=== PATIENT | male | born 1970 | race Caucasian/White ===

== ENCOUNTER → 2019-08-04 | Outpatient (CLI) | payer BC ==
--- NOTE | 2019-08-04 14:27 | SFUN ---
SLEEP CENTER FOLLOW UP NOTE DATE OF SERVICE: 08/04/2019 A 48-year-old gentleman who has been followed in the Sleep Center for treatment of obstructive sleep apnea-hypopnea syndrome. The patient successfully continues to use CPAP equipment without significant problems related to mask fitting, pressure and humidification. [place] Sleepiness Scale today is 5 which is normal. I checked patient's CPAP unit, range of the pressure 5-20, average pressure is 15.7 cm of water. For the last 6 months, patient used it to 115/118 nights and 146/180 nights more than 4 hours with average usage 5.8 hours. Leak is 38 L/minute which is borderline. Apnea-hypopnea index is 4.9, which is normal range. MEDICATIONS: Lisinopril. PHYSICAL EXAM: Patient in no distress. BP 146/64, HR 86, RR 16, height 5 feet and 1-1/2 inches, weight 316 pounds, body mass index 43.4, which is almost 6 pounds more than a couple years ago. Oxygen saturation at room air 97%. OROPHARYNX: Low position of soft palate, Mallampati 4. ABDOMEN: Obese. Neck Supple, no JVD. Thyroid is not palpable. LUNGS Clear to percussion and to auscultation. Good air exchange. No wheezing or rhonchi. HEART S1, S2 regular. No murmurs, gallops, or rubs. EXTREMITIES No clubbing or cyanosis. ELECTRIC MELT OPERATOR Awake, alert, and oriented X3. Cranial nerves 2 to 7 intact. There is no fasciculation or atrophy. noted. No focal deficits observed. IMPRESSION: 1. Severe obstructive sleep apnea-hypopnea syndrome; apnea-hypopnea index 49.7 with oxygen desaturation to 74% on control with CPAP. The patient demonstrated great compliance with treatment, benefitting from treatment. 2. Obesity. 3. Hypertension. PLAN: 1. Prescription for all necessary CPAP supplies including the area of the neck including mask and filters. 2. Patient will continue to use CPAP equipment every night for the whole night. 3. Losing weight. 4. Sleep hygiene with regular time in bed for at least 8 hours. Thank you very much for allowing me to participate in the management of your patient. Sincerely, Crow Dickey MD, PhD, FAASM Diplomat of [employer] Purchasing Agent of [facility] [place] MMODL / MARION: [id number] /
== END ==
LOC: SLEEP 13:26
PROVIDERS: ATTEND Internal Medicine
DX: G47.33 Obstructive sleep apnea (adult) (pediatric) (principal); R09.02 Hypoxemia; E66.9 Obesity, unspecified; I10 Essential (primary) hypertension; Z99.89 Dependence on other enabling machines and devices; Z68.41 Body mass index [BMI] 40.0-44.9, adult; Z79.899 Other long term (current) drug therapy

== ENCOUNTER → 2020-08-09 | Outpatient (CLI) | payer BC ==
--- NOTE | 2020-08-09 18:37 | SFUN ---
SLEEP CENTER FOLLOW UP NOTE DATE OF SERVICE: This patient is a 49-year-old gentleman who has been followed in Sleep Center for treatment of obstructive sleep apnea-hypopnea syndrome. The patient successfully continues to use his CPAP equipment every night. No snoring with the machine. [place] Sleepiness Scale today is 5, which is normal. I checked his CPAP unit. Range of the pressure is 5 to 20, average pressure 13.7 cm of water, usage 28/30 nights for more than 4 hours with average usage 6.1 hours per night, which is good compliance. Leak 40 L/minute, which is high. Apnea-hypopnea index 3.2, which is normal. MEDICATIONS: Lisinopril. PHYSICAL EXAMINATION: GENERAL: A pleasant patient in no distress. VITAL SIGNS: BP 124/79, HR 72 RR 16, height 6 feet 0 inches, weight 302 pounds, which is 14 pounds less than during last visit. Oxygen saturation 97% HEENT: PERRLA, EOMI. Evaluation of oropharynx showed tongue protrudes midline. Low position of soft palate. Mallampati IV. NECK: Supple. No JVD. Thyroid is not palpable. LUNGS: Clear to percussion and to auscultation. Good air exchange. No wheezing or rhonchi. HEART: S1, S2 regular. No murmurs, gallops or rubs. ABDOMEN: Soft and nontender. Bowel sounds are present. No organomegaly. EXTREMITIES: No clubbing or cyanosis. MUSIC DEPARTMENT CHAIR: Awake, alert, and oriented X3. Cranial nerves 2 to 7 intact. There is no fasciculation or atrophy. noted. No focal deficits observed. IMPRESSION: 1. Severe obstructive sleep apnea-hypopnea syndrome; apnea-hypopnea index 49.7 with oxygen saturation to 74%, controlled with CPAP. Patient demonstrated great compliance with treatment, benefitting from treatment. 2. Obesity. BMI 40.9. 3. Hypertension. PLAN: 1. Patient will continue to use PAP equipment every night for the whole night. 2. Sleep hygiene with regular time in bed for at least 7-1/2 to 8 hours. 3. Precautions related to driving. No driving if feeling sleepiness. 4. I will maintain all necessary prescription for PAP supplies including mask, tube, filters. 5. Watching weight. 6. No driving if feeling sleepiness. 7. Follow-up visit in 6 months or earlier if patient has any problems. Thank you very much for allowing me to participate in the management of your patient. Sincerely, Crow Dickey MD, PhD, FAASM Diplomat of [employer] Ror Engineer of [facility] [place] MMLEATHA / MARION: [id number] /
== END | disposition home or self-care (01) ==
LOC: SLEEP 13:57
PROVIDERS: ATTEND Internal Medicine
DX: G47.33 Obstructive sleep apnea (adult) (pediatric) (principal); E66.9 Obesity, unspecified; I10 Essential (primary) hypertension; Z68.41 Body mass index [BMI] 40.0-44.9, adult; Z99.89 Dependence on other enabling machines and devices

== ENCOUNTER → 2021-02-07 | Outpatient (CLI) | payer BC ==
--- NOTE | 2021-02-07 17:14 | SFUN ---
SLEEP CENTER FOLLOW UP NOTE DATE OF SERVICE: 02/07/2021 This patient a 50-year-old gentleman who has been followed in Sleep Center for treatment of obstructive sleep apnea-hypopnea syndrome. Patient continues to use his CPAP equipment every night. He does not snore. [place] Sleepiness Scale is 4. The patient feels comfortable with his CPAP equipment regarding mask fitting, pressure and humidification. He is using a nasal pillow mask AirFit P10, medium size. The patient had COVID-19 in September 2020, without significant complications. I checked his CPAP unit. Range of the pressure is 5 to 20. Machine is on automatic regimen. Average pressure 14.3, usage 29/30 nights, and 25/30 nights for more than 4 hours. Average usage 5.6 hours per night. Leak is 46 L/minute, which is high. At the same time, apnea-hypopnea index is only 2.6, which is totally normal. MEDICATIONS: Lisinopril 10 mg once a day. PHYSICAL EXAMINATION: GENERAL: A pleasant patient in no distress. VITAL SIGNS: BP 133/77, HR 72, RR 16, height 6 feet 0 inches, weight 316.0, body mass index 42.8, which is the same as one year ago. Temperature 97.4, oxygen saturation at room air 98%. HEENT: PERRLA, EOMI. Evaluation of oropharynx showed tongue protrudes midline. Extremely low position of soft palate. Mallampati IV. NECK: Supple. No JVD. Thyroid is not palpable. LUNGS: Clear to percussion and to auscultation. Good air exchange. No wheezing or rhonchi. HEART: S1, S2 regular. No murmurs, gallops or rubs. ABDOMEN: Soft and nontender. Bowel sounds are present. No organomegaly appreciated. EXTREMITIES: No clubbing or cyanosis. HAMMERER HELPER: Awake, alert, and oriented X3. Cranial nerves 2 to 7 intact. There is no fasciculation or atrophy. noted. No focal deficits observed. IMPRESSION: 1. Severe obstructive sleep apnea-hypopnea syndrome. Apnea-hypopnea index was originally 49.7 with severe oxygen desaturation to 74%. The patient demonstrated great compliance with treatment. Respiration normalized on CPAP. 2. Obesity. 3. Hypertension. 4. Patient had COVID-19 in September 2020. PLAN: 1. Patient will continue to use PAP equipment every night for the whole night. 2. Sleep hygiene with regular time in bed for at least 7-1/2 to 8 hours. 3. Precautions related to driving. No driving if feeling sleepiness. 4. I will maintain all necessary prescription for PAP supplies including mask, tube, filters. 5. Watching weight. 6. Follow-up visit in 6 months or earlier if patient has any problems. Thank you very much for allowing me to participate in the management of your patient. Sincerely, Crow Dickey MD, PhD, FAASM Diplomat of [employer] [employer] [employer] Informatics Developer of [facility] [place] MMODL / DAKOTAN: [id number] /
== END ==
LOC: SLEEP 14:00
PROVIDERS: ATTEND Internal Medicine
DX: G47.33 Obstructive sleep apnea (adult) (pediatric) (principal); E66.9 Obesity, unspecified; I10 Essential (primary) hypertension; Z86.16 Personal history of COVID-19; Z79.899 Other long term (current) drug therapy

== ENCOUNTER → 2022-02-06 | Outpatient (CLI) | payer BC ==
--- NOTE | 2022-02-06 16:14 | SFUN ---
SLEEP CENTER FOLLOW UP NOTE DATE OF SERVICE: 02/06/2022 INTERVAL HISTORY: 51-year-old gentleman has been followed in Sleep Center for treatment of obstructive sleep apnea-hypopnea syndrome. Patient continued to use her CPAP equipment practically every night according to him. [place] Sleepiness Scale is 4. He is using a nasal pillow AirFit P10 medium size mask and he is comfortable with that. I checked his CPAP unit. Air filter is in very bad shape. Machine is in automatic regimen. Range of the pressure 5-20, average pressure 16.3, usage /30 nights and 25/30 nights for more than 4 hours, average 6.4 hours per night. Leak is 24 L/minute, which is borderline. Apnea-hypopnea index 3.6, which is in normal range. MEDICATIONS: Lisinopril 10 mg once a day. PHYSICAL EXAMINATION: GENERAL: Patient in no distress. BP 138/83, HR 64, RR 16, height 6 feet, weight 318 pounds. Body mass index 43.1, temperature 98.2, oxygen saturation at room air 98%. Neck is 18 3/4 inches in circumference. Oropharynx: Extremely low position of soft palate, Mallampati 4. NECK: Supple, no JVD. Thyroid is not palpable. LUNGS: Clear to percussion and to auscultation. Good air exchange. No wheezing or rhonchi. HEART: S1, S2 regular. No murmurs, gallops, or rubs. ABDOMEN: Obese. Soft and nontender. Bowel sounds are present. No organomegaly appreciated. EXTREMITIES: No clubbing or cyanosis. ADJUNCT PHYSICAL EDUCATION INSTRUCTOR: Awake, alert, and oriented X3. Cranial nerves 2 to 7 intact. There is no fasciculation or atrophy. noted. No focal deficits observed. IMPRESSION: 1. Severe obstructive sleep apnea-hypopnea syndrome originally apnea-hypopnea index 49.7 with oxygen desaturation to 74%. The patient demonstrated good compliance with treatment, benefitting from treatment, normal respiration on CPAP. Air filter in bad condition. 2. Obesity. 3. Hypertension. 4. Status post COVID-19 in September 2020. PLAN: 1. Replace air filter immediately. 2. Patient will continue to use PAP equipment every night for the whole night. 3. Sleep hygiene with regular time in bed for at least 7-1/2 to 8 hours. 4. Precautions related to driving. No driving if feeling sleepiness. 5. I will maintain all necessary prescription for PAP supplies including mask, tube, filters. 6. Watching weight. 7. Follow-up visit in 6 months or earlier if patient has any problems. Thank you very much for allowing me to participate in management of your patient. Sincerely, Crow Dickey MD, PhD, FAASM Diplomat of [employer] Sleep Medicine Board of [employer] Medicine Crown Ironer Operator of [facility] [place] MMODL / DAKOTAN: [id number] /
== END ==
LOC: SLEEP 14:29
PROVIDERS: ATTEND Internal Medicine
DX: G47.33 Obstructive sleep apnea (adult) (pediatric) (principal); G47.36 Sleep related hypoventilation in conditions classified elsewhere; E66.9 Obesity, unspecified; I10 Essential (primary) hypertension; Z99.89 Dependence on other enabling machines and devices; Z68.41 Body mass index [BMI] 40.0-44.9, adult; Z86.16 Personal history of COVID-19

== ENCOUNTER 2023-12-29 09:18 | Day surgery (SDC) | payer BC ==
[2023-12-24 15:35] VITALS: BMI 42.0
[~2023-12-29 09:18] MED LIST: LACTATED RINGERS 1,000 ML IV SCH; LIDOCAINE 1% (10MG/ML) FOR IV START INTRADERMA PRN
[2023-12-29] MEDS ORDERED: hydrALAZINE HCL 20 MG/ML 1 ML VIAL IVP ONE (10:15)
[2023-12-29 10:16] VITALS: TEMP 97
[2023-12-29] MEDS ORDERED: PROPOFOL 10 MG/ML 20 ML VIAL IV ONE (10:36)
--- NOTE | 2023-12-29 10:59 | P.PCN ---
Date of Procedure: 12/29/23 Procedure(s) Performed: BRIEF HISTORY: Patient is a 53-year-old pleasant white male scheduled for an elective colonoscopy as a part of a for colon cancer/family history of colon cancer. His family history of colon cancer diagnosed in his two of his first cousins at age 46 and 50 respectively PROCEDURE PERFORMED: Colonoscopy snare polypectomy. PREOPERATIVE DIAGNOSIS: Screening for colon cancer and family history of colon cancer. IV sedation per Anesthesia. PROCEDURE: After informed consent was obtained, the patient, was brought into the endoscopy unit. IV sedation was administered by Anesthesia under continuous monitoring. Digital rectal examination was normal. Initially the Olympus CF-160 flexible video colonoscope was then inserted in the rectum, gradually advanced into the cecum without any difficulty. Careful examination was performed as the scope was gradually being withdrawn. Ileocecal valve and the appendiceal orifice were visualized and appeared normal. Prep was poor and several areas of the colon Mucosa of the cecum, ascending colon normal. In the transverse colon there was a 5 limited polyp that was removed by cold snare polyp rectum he. In the descending colon there was a 4 mm polyp that was removed by cold snare polypectomy. Rest of the, transverse colon, descending colon, sigmoid colon, and rectum appeared normal. There were 2 polyps measuring 3 mm and 5 mm in size removed by cold snare polypectomy. Retroflexion was performed in the rectum and no lesions were seen. The patient tolerated the procedure well. IMPRESSION: 5 mm transverse colon polyp status post cold snare polypectomy 4 mm descending colon polyp status post snare polypectomy 3 mm and 6 mm rectal polyp status post cold snare polypectomy RECOMMENDATIONS: Findings of this examination were discussed with the patient as well as his family. He was advised to follow with the biopsy results. If the biopsy result adenoma he can have a repeat colonoscopy in 3 years..
[2023-12-29 11:13] VITALS: RESP 16
[2023-12-29 11:42] VITALS: BP 132/84; PULSE 67
== END 2023-12-29 11:36 | disposition home or self-care (01) ==
LOC: ORWHC2ENDO 09:18
PROVIDERS: ATTEND Internal Medicine Gastroenterology
DX: Z12.11 Encounter for screening for malignant neoplasm of colon (principal); D12.3 Benign neoplasm of transverse colon; D12.4 Benign neoplasm of descending colon; K62.1 Rectal polyp; I10 Essential (primary) hypertension; E66.9 Obesity, unspecified; Z80.0 Family history of malignant neoplasm of digestive organs; Z79.899 Other long term (current) drug therapy; Z68.41 Body mass index [BMI] 40.0-44.9, adult
CPT/HCPCS: 88305; 45385; J0360; J2704

== ENCOUNTER 2024-05-06 21:16 | Emergency (ER) | payer BC ==
[2024-05-06 21:24] VITALS: TEMP 97.6
--- NOTE | 2024-05-06 21:26 | ED ---
Upper Extremity HPI - General Chief Complaint: Extremity Injury, Upper Stated Complaint: Left arm injury Time Seen by Provider: 05/06/24 21:25 Source: patient, RN notes reviewed Mode of arrival: ambulatory Limitations: no limitations - History of Present Illness Initial Comments: This is a 53-year-old male presents emergency department chief complaint of a fall. States that he was attempting to use the restroom and with the lights being out he accidentally fell down 3 wooden stairs injuring his left arm. He states that pain is located to his left wrist. Endorses mild pain to the left shoulder, denies wrist pain. He denies dizziness, lightheadedness, fatigue, dyspnea or symptoms of presyncope before time of the event, denies loss of consciousness. No other acute bony complaints being neck pain, back pain, hip or wrist pain. Has not taken anything for the pain. Patient placed himself in an at home made sling with sheets. - Related Data Home Medications Medication Instructions Recorded Confirmed lisinopriL [Zestril] 10 mg PO DAILY 12/24/23 12/24/23 Previous Rx's Medication Instructions Recorded HYDROcodone/APAP 5-325MG [[place] 5] 1 each PO Q6HR PRN #12 tab 05/06/24 Allergies Allergy/AdvReac Type Severity Reaction Status Date / Time No Known Allergies Allergy Verified 05/06/24 21:19 Review of Systems ROS Statement: Those systems with pertinent positive or pertinent negative responses have been documented in the HPI. ROS Other: All systems not noted in ROS Statement are negative. Past Medical History Past Medical History: Hypertension History of Any Multi-Drug Resistant Organisms: None Reported Additional Past Surgical History / Comment(s): vasectomy Past Anesthesia/Blood Transfusion Reactions: No Reported Reaction Additional Past Anesthesia/Blood Transfusion Reaction / Comment(s): no blood transfusion Past Psychological History: No Psychological Hx Reported Smoking Status: Never smoker Past Alcohol Use History: Daily Past Drug Use History: None Reported - Past Family History Father Additional Family Medical History / Comment(s): non hodgkins lymphoma General Exam Limitations: no limitations General appearance: alert, in no apparent distress Head exam: Present: atraumatic, normocephalic, normal inspection Eye exam: Present: normal appearance, PERRL, EOMI. Absent: scleral icterus, conjunctival injection, periorbital swelling ENT exam: Present: normal exam, mucous membranes moist Neck exam: Present: normal inspection. Absent: tenderness, meningismus, lymphadenopathy Respiratory exam: Present: normal lung sounds bilaterally. Absent: respiratory distress, wheezes, rales, rhonchi, stridor Cardiovascular Exam: Present: regular rate, normal rhythm, normal heart sounds. Absent: systolic murmur, diastolic murmur, rubs, gallop, clicks GI/Abdominal exam: Present: soft, normal bowel sounds. Absent: distended, tenderness, guarding, rebound, rigid Left Shoulder Exam: Present: normal inspection, tenderness. Absent: swelling, abrasion, laceration, ecchymosis Upper Arm exam: Present: tenderness, other (unable to assess ROM of left upper extremity due to pain). Absent: full ROM, laceration, ecchymosis, deformity Elbow exam: Absent: full ROM Forearm Wrist exam: Present: normal inspection, full ROM. Absent: tenderness, swelling, abrasion Neuro motor exam: Present: wrist extension intact Vascular: Present: normal capillary refill, radial pulse (2+). Absent: vascular compromise Back exam: Present: normal inspection Neurological exam: Present: alert, oriented X3, CN II-XII intact Psychiatric exam: Present: normal affect, normal mood Skin exam: Present: warm, dry, intact, normal color. Absent: rash Course Vital Signs 05/06/24 21:19 Temperature 97.6 F Pulse Rate 81 Respiratory 22 Rate Blood Pressure 171/102 O2 Sat by Pulse 98 Oximetry Medical Decision Making - Medical Decision Making Was pt. sent in by a medical professional or institution (, PA, GRAVITY PROSPECTING OPERATOR HELPER, urgent care, hospital, or long-term...) When possible be specific @ -No Did you speak to anyone other than the patient for history (EMS, parent, family, police, friend...)? What history was obtained from this source @ -No Did you review nursing and triage notes (agree or disagree)? Why? @ -I reviewed and agree with nursing and triage notes Were old charts reviewed (outside hosp., previous admission, EMS record, old EKG, old radiological studies, urgent care reports/EKG's, long-term records)? Report findings @ -No old charts were reviewed Differential Diagnosis (chest pain, altered mental status, abdominal pain women, abdominal pain men, vaginal bleeding, weakness, fever, dyspnea, syncope, headache, dizziness, GI bleed, back pain, seizure, CVA, palpatations, mental health, musculoskeletal)? @ -Differential Musculoskeletal Muscular strain, contusion, ligament sprain, fracture, arthritis, septic arthritis, bursitis, cellulitis, muscle spasm, nerve compression, DVT, arterial occlusion, herpes zoster, electrolyte abnormality, tumor.... This is not meant to be in all inclusive list EKG interpreted by me (3pts min.). @ -None X-rays interpreted by me (1pt min.). @ -X-ray of the left humerus and shoulder reveals an acute comminuted displaced fracture of the midshaft CT interpreted by me (1pt min.). @ -None done U/S interpreted by me (1pt. min.). @ -None done What testing was considered but not performed or refused? (CT, X-rays, U/S, labs)? Why? @ -None What meds were considered but not given or refused? Why? @ -None Did you discuss the management of the patient with other professionals (professionals i.e. , PA, GRAVITY PROSPECTING OPERATOR HELPER, lab, RT, psych nurse, social science analyst, technical recruiter, teacher, unclaimed property officer, case liner)? Give summary @ -No Was smoking cessation discussed for >3mins.? @ -No Was critical care preformed (if so, how long)? @ -No Were there social determinants of health that impacted care today? How? (Homeles sness, low income, unemployed, alcoholism, drug addiction, transportation, low edu. Level, literacy, decrease access to med. care, custodial, rehab)? @ -No Was there de-escalation of care discussed even if they declined (Discuss DNR or withdrawal of care, Hospice)? DNR status @ -No What co-morbidities impacted this encounter? (DM, HTN, Smoking, COPD, CAD, Cancer, CVA, ARF, Chemo, Hep., AIDS, mental health diagnosis, sleep apnea, morbid obesity)? @ -None Was patient admitted / discharged? Hospital course, mention meds given and route, prescriptions, significant lab abnormalities, going to OR and other pertinent info. @ -53-year-old male with left upper extremity pain. On examination unable to assess range of motion due to patient experiencing pain. The left upper extremity is neurovascularly intact with a 2+ radial pulse and full sensation and construction grip strength. Patient was provided with a IM dose of Dilaudid and will be sent for x-rays of the left upper extremity. X-ray revealed a comminuted displaced fracture of the midshaft of the left humerus. Patient was placed in a coaptation splint and placed in a sling and provided with orthopedic follow-up. Provided with a starter pack of Tylenol 3 and sent a prescription for [place] to his pharmacy. Discussed strict return parameters with the patient such as increasingly out of proportion pain, discoloration of the hand, and inability of sensation. All questions answered at bedside and patient verbalized understanding and agreement in plan. Case discussed with Dr. Valencia Undiagnosed new problem with uncertain prognosis? @ -No Drug Therapy requiring intensive monitoring for toxicity (Heparin, Nitro, Insulin, Cardizem)? @ -No Were any procedures done? @ -Orthopedic splinting Diagnosis/symptom? @ -Comminuted displaced fracture of the left midshaft humerus Acute, or Chronic, or Acute on Chronic? @ -Acute Uncomplicated (without systemic symptoms) or Complicated (systemic symptoms)? @ -Uncomplicated Side effects of treatment? @ -No Exacerbation, Progression, or Severe Exacerbation? @ -No Poses a threat to life or bodily function? How? (Chest pain, [place], VA, pneumonia, PE, COPD, DKA, ARF, appy, cholecystitis, CVA, Diverticulitis, Homicidal, Suicidal, threat to staff... and all critical care pts) @ -No Disposition Clinical Impression: Humeral fracture Disposition: HOME SELF-CARE Condition: Good Instructions (If sedation given, give patient instructions): Arm Fracture in Adults (ED) Additional Instructions: Return to the emergency department if symptoms worsen or not improved. Return if pain is out of proportion, or becomes pale, decrease in sensation. Follow-up with source water protection specialist. Take pain medication as needed. Remain in the splint and sling until follow-up with orthopedic. Prescriptions: HYDROcodone/APAP 5-325MG [[place] 5] 1 each PO Q6HR PRN #12 tab PRN Reason: Pain Is patient prescribed a controlled substance at d/c from ED?: Yes When asked, does pt state using other controlled substances?: No If prescribed controlled substance>3 days was MAPS reviewed?: Prescribed <3 Days Referrals: Jeremiah Harden DO [Primary Care Provider] - 1-2 days Alex Chi DO [Doctor of Osteopathic Medicine] - 1-2 days Time of Disposition: 22:16
[2024-05-06] MEDS: HYDROmorphone 1 MG/ML 1 ML SYRINGE IM STA (21:41)
--- NOTE | 2024-05-06 22:01 | XR ---
EXAMINATION TYPE: XR humerus LT, XR shoulder complete LT DATE OF EXAM: 05/06/2024 CLINICAL HISTORY: Fall with pain TECHNIQUE: Three views of the left shoulder and 2 views left humerus are obtained. COMPARISON: None. FINDINGS: Acute comminuted displaced fracture through the mid diaphysis of the left humerus. No addit ional acute displaced fracture of the left shoulder. Visualized ribs are intact. Overlying soft tissu es unremarkable. IMPRESSION: There is acute comminuted displaced fracture mid shaft level of the left humerus.
[2024-05-06] MEDS: ACET/COD 300 MG/30 MG STARTER PACK 6 TAB BTL PO STA (22:36)
[2024-05-06 22:40] VITALS: BP 164/94; PULSE 84; RESP 18
== END 2024-05-06 22:39 | disposition home or self-care (01) ==
LOC: EC 21:16
DX: S42.352A Displaced comminuted fracture of shaft of humerus, left arm, initial encounter for closed fracture (principal); W10.9XXA Fall (on) (from) unspecified stairs and steps, initial encounter
CPT/HCPCS: 73030; 73060; 99283; 96372; J1170

== ENCOUNTER → 2024-06-01 | Outpatient (CLI) | payer BC ==
[2024-06-01 14:15] VITALS: BP 148/84; PULSE 66; RESP 16; TEMP 98.1
--- NOTE | 2024-06-01 14:43 | P.PROGSL ---
Subjective DATE: 02/04/2024 FOLLOW UP VISIT. Patient with obstructive sleep apnea hypopnea syndrome return to sleep center for follow-up visit. Information from previous visit have been reviewed. Patient is using PAP equipment every night for the whole night, getting PAP supplies in time. The patient does not have significant problems with the mask, PAP unit and humidification. [place] sleepiness scale is 2, which is perfect. I checked information from PAP unit. PAP unit pressure 5-20, average 16 cm H2O. Usage is 90% for more then 4 hours, average 6.5 hours per night. Leak is 32 l/m, which is in acceptable range. Apnea Hypopnea Index is 2.5, which is normal. MEDICATIONS: Please see below During physical exam: GENERAL: A pleasant patient without any distress. VITAL SIGNS: Please see below, weight 307 pounds, BMI 42.2. HEENT: PERRLA, EOMI.low position of soft palate, Mallapati 4 . NECK: Supple. No JVD. LUNGS: Clear to percussion and to auscultation. Good air exchange. No wheezing or rhonchi. HEART: S1, S2 regular. ABDOMEN: Soft and nontender. Slightly obese EXTREMITIES: No clubbing or cyanosis. SERVICE DELIVERY MANAGER: Awake, alert, and oriented x3. No focal deficit. Impressions: 1. Obstructive sleep apnea-hypopnea syndrome. Patient demonstrated great compliance with treatment, benefiting from treatment. 2. Obesity, BMI 42.2. 3. Hypertension. 4. Status post recent left humerus fracture. Plan: 1. Continue using PAP equipment every night for the whole night. 2. To change air filter at least 1-2 times per month. 3. PAP unit should stay lower then position of the head. 4. Advised patient to remove all remaining water from humidifier canister daily and make it dry after each usage. Refill canister with fresh distilled water be fore each usage. 5. Sleep hygiene with regular time in bed for at least 8 hours. 6. Precautions related to driving. No driving if feel any sleepiness. 7. I will maintain prescription for PAP supplies including mask, tube, filters. 8. Follow up visit in 6 months or earlier if patient has any problems. 9. Watching and losing weight. Thank you very much for allowing me to participate in the management of your patient. Crow Dickey MD, PhD, FAASM. Diplomat of [employer], Sleep Medicine Board by [employer] [facility] [place] Objective - Vital Signs Vital Signs: Vital Signs Temp 98.1 F 06/01/24 14:14 Pulse 66 06/01/24 14:14 Resp 16 06/01/24 14:14 BP 148/84 06/01/24 14:14 Pulse Ox 96 06/01/24 14:14 FiO2 Intake & Output 05/31/24 06/01/24 06/01/24 18:59 06:59 18:59 Weight 139.253 kg Home Medications: Home Medications Medication Instructions Recorded Confirmed Type lisinopriL [Zestril] 10 mg PO DAILY 12/24/23 12/24/23 History HYDROcodone/APAP 5-325MG [[place] 5] 1 each PO Q6HR PRN #12 tab 05/06/24 Rx
== END ==
LOC: 3 N SLEEP 13:42
PROVIDERS: ATTEND Internal Medicine
DX: G47.33 Obstructive sleep apnea (adult) (pediatric) (principal); E66.9 Obesity, unspecified; I10 Essential (primary) hypertension; Z99.89 Dependence on other enabling machines and devices; Z79.899 Other long term (current) drug therapy; Z68.41 Body mass index [BMI] 40.0-44.9, adult; Z87.81 Personal history of (healed) traumatic fracture
CPT/HCPCS: 99212

== ENCOUNTER → 2025-05-31 | Outpatient (CLI) | payer BC ==
[2025-05-31 15:02] VITALS: BP 143/81; PULSE 65; RESP 16; TEMP 98
--- NOTE | 2025-05-31 15:22 | P.PROGSL ---
Subjective DATE: 05/31/2025 FOLLOW UP VISIT. Patient with obstructive sleep apnea hypopnea syndrome return to sleep center for follow-up visit. Information from previous visit have been reviewed. Patient is using PAP equipment every night for the whole night, getting PAP supplies in time. The patient does not have significant problems with the mask, PAP unit and humidification. [place] sleepiness scale is 6, which is normal. Patient lost a lot of weight comparing with the previous visit, he tried to sleep without CPAP unit, but continued to snore and wakes up. I checked information from PAP unit. PAP unit pressure 5-20, average 11.5, subsequently decreased from previous visit from 16 cm of water average, probably related to losing weight. Usage is 80% for more then 4 hours, average 6.2 hours per night. Leak is 32 l/m, which is in acceptable range. Apnea Hypopnea Index is 2.5, which is normal. MEDICATIONS have been reviewed, please see below. During physical exam: GENERAL: A pleasant patient without any distress. VITAL SIGNS: Please see below, weight is 231.4 lbs. HEENT: PERRLA, EOMI.low position of soft palate, Mall[place]ati 4 . NECK: Supple. No JVD. LUNGS: Clear to percussion and to auscultation. Good air exchange. No wheezing or rhonchi. HEART: S1, S2 regular. ABDOMEN: Soft and nontender.[] EXTREMITIES: No clubbing or cyanosis. TUBING ASSEMBLER: Awake, alert, and oriented x3. No focal deficit. Impressions: 1. Obstructive sleep apnea-hypopnea syndrome. Patient demonstrated great compliance with treatment, benefiting from treatment. 2. Obesity, BMI 31.7, patient lost 76 pounds comparing with previous visit. 3. Hypertension. 4. Status post recent left humerus fracture. Plan: 1. Continue using PAP equipment every night for the whole night. 2. Sleep hygiene with regular time in bed for at least 7.5-8 hours 3. PAP unit should stay lower then position of the head. 4. Advised patient to remove all remaining water from humidifier canister daily and make it dry after each usage. Refill canister with fresh distilled water before each usage. 5. Watching and continue losing weight. 6. Precautions related to driving. No driving if feel any sleepiness. 7. I will maintain prescription for PAP supplies including mask, tube, filters. 8. Follow up visit in 8 months or earlier if patient has any problems. Thank you very much for allowing me to participate in the management of your patient. Crow Dickey MD, PhD, FAASM. Diplomat of [place], Sleep Medicine Board by [employer] [facility] [place] Objective - Vital Signs Vital Signs: Vital Signs Temp 98.0 F 05/31/25 15:01 Pulse 65 05/31/25 15:01 Resp 16 05/31/25 15:01 BP 143/81 05/31/25 15:01 Pulse Ox 98 05/31/25 15:01 FiO2 Intake & Output 05/30/25 05/31/25 05/31/25 18:59 06:59 18:59 Weight 104.893 kg Home Medications: Home Medications Medication Instructions Recorded Confirmed Type lisinopriL [Zestril] 10 mg PO DAILY 12/24/23 05/31/25 History HYDROcodone/APAP 5-325MG [[place] 5] 1 each PO Q6HR PRN #12 tab 05/06/24 Rx
== END ==
LOC: 3 N SLEEP 14:41
PROVIDERS: ATTEND Internal Medicine
DX: G47.33 Obstructive sleep apnea (adult) (pediatric) (principal); E66.9 Obesity, unspecified; I10 Essential (primary) hypertension; Z98.890 Other specified postprocedural states; Z99.89 Dependence on other enabling machines and devices; Z68.31 Body mass index [BMI] 31.0-31.9, adult
CPT/HCPCS: 99212